=== PATIENT | female | born 1965 | race Caucasian/White ===

== ENCOUNTER 2017-05-10 16:19 | Emergency (ER) | payer OTHER ==
[~2017-05-10] VITALS: Ht 165.1 cm; Wt 94.5 kg
[~2017-05-10 16:19] MED LIST: COLACE100 MG PO; ESTRACE1 MG PO; LEXAPRO20 MG PO; MEDROL DOSEPAK4 MG PO; MIRAPEX0.5 MG PO; NOHOMEMEDS; PERCOCET 5/31 TABLET PO; SKELAXIN800 MG PO
[2017-05-10 16:57] LABS: HEMATOCRIT 41.3 % (36.0-46.0); HEMOGLOBIN 14.2 G/DL (11.9-15.5); MCH 29.3 PG (29.0-34.0); MCHC 34.4 G/DL (30.0-36.0); MCV 85.2 FL (83-99); PLATELET COUNT 347 K/uL (156-360); RBC DIS.WIDTH-CV 13.1 % (11.8-14.6); RBC DIS.WIDTH-SD 40.8 % (39-53); RED BLOOD COUNT 4.85 M/uL (3.80-5.20)
[2017-05-10 17:13] LABS: CHLORIDE 102 mEq/L (99-109); POTASSIUM 3.7 mEq/L (3.7-5.4); SODIUM 135 mEq/L (136-147)
[2017-05-10 17:15] LABS: GLUCOSE 120 mg/dL (70-99)
[2017-05-10 17:19] LABS: CREATININE 0.9 mg/dL (0.6-1.3); GFR ESTIMATE (CALCULATED) > 59 mL/min/; TROP-I INTERPRETATION NEGATIVE; TROPONIN-I < 0.01 ng/mL (0.0-0.30)
[2017-05-10 17:20] LABS: UREA NITROGEN (BUN) 21 mg/dL (9-23)
[2017-05-10 20:25] LABS: TROP-I INTERPRETATION NEGATIVE; TROPONIN-I < 0.01 ng/mL (0.0-0.30)
[2017-05-10] MEDS ORDERED: ZOFRAN ODT4 MG PO (20:33)
[2017-05-10 20:43] VITALS: BP 115/59
== END 2017-05-10 20:46 | disposition home or self-care (01) ==
LOC: EME 16:19
PROVIDERS: Nurse Practitioner Family
DX: J10.1 Influenza due to other identified influenza virus with other respiratory manifestations (principal); R11.2 Nausea with vomiting, unspecified; R07.89 Other chest pain; G25.81 Restless legs syndrome; F41.9 Anxiety disorder, unspecified; Z90.710 Acquired absence of both cervix and uterus; Z88.0 Allergy status to penicillin
CPT/HCPCS: 71020; 80048; 84484; 85027; 87502; 93005; 99281; 99284